=== PATIENT | female | born 1975 | race Caucasian/White ===

== ENCOUNTER → 2016-07-01 | Outpatient (REF) | payer BC, OTHER | END | disposition home or self-care (01) | LOC: M SFHCLERA 18:24 | PROVIDERS: ATTEND Physician Assistant | DX: J02.9 Acute pharyngitis, unspecified (principal) ==

== ENCOUNTER 2016-08-09 11:54 | Emergency (ER) | payer BC, OTHER ==
[~2016-08-09] VITALS: Ht 160 cm; Wt 68.0 kg
[2016-08-09] MEDS ORDERED: ASPIRIN 81 MG CHEW TABLET PO ONE (12:45)
[2016-08-09 13:01] LABS: BASO % 0.5 % (0.0-1.0); EOS # 0.1 K/mm3 (0.0-0.50); EOS % 2.1 % (0.0-3.0); LARGE UNSTAINED CELL # 0.1 K/mm3 (0.0-0.4); LARGE UNSTAINED CELL % 1.8 % (0.0-4.0); LYMPH # 1.5 K/mm3 (1.5-4.5); LYMPH % 24.6 % (24.0-44.0); MEAN CORPUSCULAR HEMOGLOBIN 27.8 pg (27.0-33.0); MEAN CORPUSCULAR HGB CONC 34.3 g/dl (32.0-36.5); MONO # 0.3 K/mm3 (0.0-0.8); MONO % 5.1 % (0.0-5.0); NEUTROPHILS # 3.8 K/mm3 (1.8-7.7); NEUTROPHILS % 65.9 % (36.0-66.0); PLATELET COUNT, AUTOMATED 233 k/mm3 (150-450); RED CELL DISTRIBUTION WIDTH 13.9 % (11.5-14.5); WHITE BLOOD COUNT 5.7 K/mm3 (4.0-10.0)
[2016-08-09 13:13] LABS: ANION GAP 8 MEQ/L (8-16); BLOOD UREA NITROGEN 11 MG/DL (7-18); CALCIUM LEVEL 8.7 MG/DL (8.5-10.1); CARBON DIOXIDE LEVEL 25 MEQ/L (21-32); CHLORIDE LEVEL 105 MEQ/L (98-107); CREATININE FOR GFR 0.85 MG/DL (0.55-1.02); GLOMERULAR FILTRATION RATE > 60.0 (>60); GLUCOSE, FASTING 92 MG/DL (70-105); POTASSIUM SERUM 3.9 MEQ/L (3.5-5.1); SODIUM LEVEL 138 MEQ/L (136-145)
--- NOTE | 2016-08-09 13:55 | REP ---
CHEST: Two views. There is no evidence of acute infiltrate. No pleural effusion is seen. The heart is normal in size. The mediastinal silhouette is unremarkable. The visualized osseous structures are intact. IMPRESSION: No acute pulmonary disease. Signed by Shaheed Melendez MD 08/09/2016 05:06 P
[2016-08-09 15:46] LABS: T UPTAKE 32 % (30-39); THYROXINE (T4) 7.9 UG/DL (4.5-12.0)
[2016-08-09] MEDS ORDERED: ASPI81CH32 PO (18:49)
[2016-08-09 19:06] VITALS: BP 115/67
--- NOTE | 2016-08-10 10:28 | ECGEPIP ---
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 RBBB NO PRIORS Electronically Signed On 08-10-2016 10:28:24 EST by Maximo Molina
--- NOTE | 2016-08-10 10:41 | ECGEPIP ---
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 RBBB SIMILAR TO 08/09/16 [id number] Electronically Signed On 08-10-2016 10:41:38 EST by Maximo Molina
== END 2016-08-09 19:22 | disposition home or self-care (01) ==
LOC: MERGE 13:02 → M ED 13:02
DX: R07.9 Chest pain, unspecified (principal); Z82.49 Family history of ischemic heart disease and other diseases of the circulatory system

== ENCOUNTER → 2016-09-05 | Outpatient (CLI) | payer BC, OTHER ==
[~2016-09-05] MED LIST: ASPI81CH32 PO
--- NOTE | 2016-09-05 13:59 | REP ---
MR CERVICAL SPINE WITHOUT CONTRAST: HISTORY: Cervicalgia. A disc bulge and small right paracentral disc extrusion are present at the C5-6 level. There is inferior migration of disc material. There is minimal effacement of the thecal sac without spinal cord compression. The C5 neural foramina are patent. There is no other disc bulge or herniation. The remaining neural foramina are patent. The spinal cord is normal in signal intensity. The C5-6 intervertebral disc is decreased in height consistent with disc degeneration. Normal signal intensity is present in the cervical vertebral bodies. IMPRESSION: There is cervical spondylosis at the C5-6 level without spinal cord compression. Signed by Terrance Ferreira MD 09/05/2016 02:02 P
== END ==
LOC: M RAD 12:19
PROVIDERS: ATTEND Orthopaedic Surgery
DX: M54.2 Cervicalgia (principal); M47.812 Spondylosis without myelopathy or radiculopathy, cervical region

== ENCOUNTER → 2016-09-16 | Outpatient (REF) | payer BC, OTHER ==
[2016-09-16 13:33] LABS: CHOLESTEROL LEVEL 158 MG/DL (<200); TRIGLYCERIDES LEVEL 104 MG/DL (<150)
== END ==
LOC: M LABDRAW1 11:30
PROVIDERS: ATTEND Internal Medicine Cardiovascular Disease
DX: R07.2 Precordial pain (principal)

== ENCOUNTER 2016-10-31 18:34 | Emergency (ER) | payer BC, OTHER ==
[~2016-10-31] VITALS: Ht 160 cm; Wt 57.6 kg
[2016-10-31 18:34] VITALS: BP 123/72
[2016-10-31] MEDS ORDERED: PENI50TA PO (21:23)
[2016-10-31] MEDS ORDERED: IBUP600T26 PO (21:23)
[2016-10-31] MEDS ORDERED: PENICILLIN V POTASSIUM 500 MG TAB PO ONE (21:30)
[2016-10-31] MEDS ORDERED: IBUPROFEN 600 MG TAB PO ONE (21:30)
== END 2016-10-31 21:50 | disposition home or self-care (01) ==
LOC: M ED 19:49
DX: J02.9 Acute pharyngitis, unspecified (principal); Z88.5 Allergy status to narcotic agent

== ENCOUNTER 2016-11-06 20:39 | Emergency (ER) | payer BC, OTHER ==
[~2016-11-06] VITALS: Ht 160 cm; Wt 54.4 kg
[~2016-11-06 20:39] MED LIST changes: +IBUP600T26 PO; +PENI50TA PO
[2016-11-06] MEDS ORDERED: IBUPROFEN 600 MG TAB PO ONE (21:45)
[2016-11-06] MEDS ORDERED: IPRATROPIUM 0.5MG/ALBUTEROL 2.5MG INH SOL UD 3ML (DUONEB)(J7620) NEB ONE (21:45)
[2016-11-06] MEDS ORDERED: ALBUTEROL 90 MCG/ACT 8GM HFA INHALER INH ONE (22:15)
[2016-11-06] MEDS ORDERED: PROA1AER INH (22:17)
[2016-11-06] MEDS ORDERED: GUAISYP4 PO (22:18)
[2016-11-06 22:24] VITALS: BP 119/70
== END 2016-11-06 22:30 | disposition home or self-care (01) ==
LOC: M ED 21:22
DX: J20.9 Acute bronchitis, unspecified (principal); J02.9 Acute pharyngitis, unspecified; Z88.5 Allergy status to narcotic agent; Z79.2 Long term (current) use of antibiotics

== ENCOUNTER → 2017-02-17 | Outpatient (REF) | payer BC ==
[~2017-02-17] MED LIST changes: +GUAISYP4 PO; +IBUP-1022 PO; -IBUP600T26 PO; +PENI500T PO; -PENI50TA PO; +PROAAER10 INH
== END ==
LOC: M SFHCLERA 09:52
PROVIDERS: ATTEND Nurse Practitioner Family
DX: R10.9 Unspecified abdominal pain (principal)